=== PATIENT | female | born 1995 | race Caucasian/White ===

== ENCOUNTER 2017-11-06 09:31 | Emergency (ER) | payer MEDICAID, OTHER ==
[~2017-11-06] VITALS: Ht 154.9 cm; Wt 67.8 kg
[2017-11-06 09:33] VITALS: BP 113/76
[2017-11-06] MEDS ORDERED: EPINEPHRINE 1 MG/ML, 1ML SQ ONE (10:00)
[2017-11-06] MEDS ORDERED: FAMOTIDINE 20 MG TABLET PO ONE (10:00)
[2017-11-06] MEDS ORDERED: DIPHENHYDRAMINE 25 MG CAPSULE PO ONE (10:00)
[2017-11-06] MEDS ORDERED: DIPHENHYDRAMINE 25 MG CAPSULE ONE (10:07)
[2017-11-06] MEDS ORDERED: FAMOTIDINE 20 MG TABLET ONE (10:08)
[2017-11-06] MEDS ORDERED: EPINEPHRINE 1 MG/ML, 1ML ONE (10:09)
== END 2017-11-06 10:43 | disposition home or self-care (01) ==
LOC: ED 10:20
DX: L50.9 Urticaria, unspecified (principal); F17.200 Nicotine dependence, unspecified, uncomplicated
CPT/HCPCS: 96372; 99284; J0171; J7512; Q0163

== ENCOUNTER 2017-11-11 17:25 | Emergency (ER) | payer SELFPAY ==
[~2017-11-11] VITALS: Ht 154.9 cm; Wt 67.0 kg
[2017-11-11 17:25] VITALS: BP 121/71
[2017-11-11] MEDS ORDERED: SODIUM CHLORIDE FLUSH 10ML SYR IVF ONE (18:00)
[2017-11-11] MEDS ORDERED: IBUPROFEN 200 MG TABLET PO ONE (18:00)
[2017-11-11] MEDS ORDERED: SODIUM CHLORIDE 0.9% 1,000ML IVBOLUS ONE (18:00)
[2017-11-11] MEDS ORDERED: ACETAMINOPHEN 500 MG TABLET ONE (18:09)
[2017-11-11] MEDS ORDERED: IBUPROFEN 200 MG TABLET ONE (18:09)
[2017-11-11 18:40] LABS: BASOPHILS # (AUTO) 0.05 x10^3/uL (0-0.1); BASOPHILS % (AUTO) 0 % (0-1); EOSINOPHILS % (AUTO) 0 % (1-7); LYMPHOCYTES # (AUTO) 0.75 x10^3/uL (1-3.4); LYMPHOCYTES % (AUTO) 5 % (22-44); MD NO; MEAN CORPUSCULAR HEMOGLOBIN 29.5 pg (27.0-34.8); MEAN CORPUSCULAR HGB CONC 33.7 g/dL (32.4-35.8); MEAN CORPUSCULAR VOLUME 87.5 fL (80-100); MEAN PLATELET VOLUME 8.5 fL (7.4-10.4); MONOCYTES % (AUTO) 7 % (2-9); NEUTROPHILS # (AUTO) 13.59 x10^3/uL (1.8-6.8); NEUTROPHILS % (AUTO) 88 % (42-75); PLATELET COUNT 281 x10^3/uL (130-400); RED BLOOD COUNT 4.91 x10^6/uL (3.82-5.3); RED CELL DISTRIBUTION WIDTH 12.9 % (9.6-15.2)
== END 2017-11-11 18:44 | disposition home or self-care (01) ==
LOC: ED 18:10
DX: R50.9 Fever, unspecified (principal)
CPT/HCPCS: 36415; 71045; 83605; 85025; 87040; 99285